=== PATIENT | male | born 2000 | race Caucasian/White ===

== ENCOUNTER 2024-02-17 18:38 | Emergency (ER) | payer MEDICAID ==
[~2024-02-17] VITALS: Ht 170.2 cm; Wt 49.9 kg
[2024-02-17 18:49] VITALS: BP_SYST 110; PULSE 110; RESP 20; TEMP 101.6; O2SAT 94
[2024-02-17] MEDS: IBUPROFEN 600 MG TABLET PO ONE (19:12)
[2024-02-17 19:16] LABS: STREPTOCOCCUS A SCREEN (RAPID) NEGATIVE (NEGATIVE)
[2024-02-17 19:26] LABS: INFLUENZA TYPE A Negative (NEGATIVE); INFLUENZA TYPE B NEGATIVE (NEGATIVE)
[2024-02-17] MEDS ORDERED: AUG875 PO (19:43)
[2024-02-17] MEDS ORDERED: IBUP-1969 PO (19:43)
[2024-02-17 19:49] VITALS: BP_SYST 110; PULSE 110; RESP 20; TEMP 101.6; O2SAT 94
== END 2024-02-17 19:48 | disposition home or self-care (01) ==
LOC: SED 18:38
DX: J32.0 Chronic maxillary sinusitis (principal); Z20.822 Contact with and (suspected) exposure to COVID-19
CPT/HCPCS: 36415; 86403; 87081; 99283